=== PATIENT | male | born 1985 | race American Indian/Alaskan Native ===

== ENCOUNTER 2018-08-23 13:31 | Emergency (ER) | payer BC, OTHER ==
--- NOTE | 2018-08-23 15:10 | Emergency Department Report ---
Upper Extremity - HPI Chief Complaint: Shoulder Injury Stated Complaint: L SHOULDER PAIN Time Seen by Provider: 08/23/18 14:58 Upper Extremity: Left Shoulder Occurred When: >5 Days (2 months) Mechanism: Unsure Severity: moderate Symptoms: Yes Pain with Movement (mild), No Deformity, No Limited Range of Movement, No Numbness, No Weakness, No Swelling, No Bruising/Ecchymosis, No Laceration or Abrasion Other History: 33-year-old -Swiss male presents to the emergency room for a 2 month history of left shoulder pain after kickboxing. Patient reports he was lifting weights. Patient has not taken anything for pain. Patient does have a past medical history of PTSD and bipolar with depression. Patient repor ts that he is allergic to Zyprexa. Patient currently takes Depakote and Invega and BuSpar. Patient denies any hallucination or homicidal ideation. ED Review of Systems ROS: Stated complaint: L SHOULDER PAIN Other details as noted in HPI Comment: All other systems reviewed and negative ED Past Medical Hx - Past Medical History Previous Medical History?: Yes Hx Psychiatric Treatment: Yes (anxiety, bipolar disorder, PTSD) - Surgical History Past Surgical History?: No - Social History Smoking Status: Current Every Day Smoker Substance Use Type: Marijuana - Medications Home Medications: Home Medications Medication Instructions Recorded Confirmed Last Taken Type Diclofenac Dr [Marjan Sidhu] 75 mg PO Q12H #30 tablet 10/30/14 Unknown Rx Ibuprofen [Motrin 600 MG tab] 600 mg PO Q8H PRN #15 tablet 08/23/18 Unknown Rx Upper Extremity Exam - Exam General: Vital signs noted. No distress. Alert and acting appropriately. Head and Torso: No HEENT Abnormality, No Neck Tenderness, No Chest/Lungs Abnormality, No Abdominal Tenderness, No Back Tenderness Shoulder Exam: Yes Normal Range of Motion in Shoulder, No Shoulder Tenderness, No Clavicle Tenderness, No Shoulder Deformity, No AC Joint Tenderness Arm Exam: No Arm/Humerus Tenderness, No Arm Deformity Elbow: No Elbow Tenderness, No Normal Range of Motion in Elbow, No Elbow Deformity Forearm: No Forearm Tenderness, No Forearm Deformity, No Pain with Pronation, No Pain with Supination Wrist: Yes Normal ROM in Wrist, No Wrist Tenderness, No Wrist Deformity, No Snuffbox Tenderness, No Pain with Axial Thumb Compression Hand: Yes Normal ROM in Digit(s), No Hand Tenderness, No Hand Deformity, No Digit Tenderness, No Digit(s) Deformity, No Tendon Dysfunction CMS Exam: No Broken Skin, No Normal Distal Pulses, No Normal Capillary Refill, No Normal Distal Sensation ED Course Vital Signs 08/23/18 14:25 Temperature 98 F Pulse Rate 79 Respiratory 18 Rate Blood Pressure 137/78 [Right] O2 Sat by Pulse 99 Oximetry ED Medical Decision Making - Medical Decision Making 33-year-old male comes in with 2 month history of left shoulder pain [facility]. Patient be discharged home on ibuprofen 600 mg every 8 hours as needed and to be referred to Dr. Gamboa orthopedic provider. Critical care attestation.: If time is entered above; I have spent that time in minutes in the direct care of this critically ill patient, excluding procedure time. ED Disposition Clinical Impression: Left shoulder strain Qualifiers: Encounter type: initial encounter Qualified Code(s): S46.912A - Strain of unspecified muscle, fascia and tendon at shoulder and upper arm level, left arm, initial encounter Disposition: - TO HOME OR SELFCARE Is pt being admited?: No Does the pt Need Aspirin: No Condition: Stable Instructions: Rotator Cuff Injury (ED) Additional Instructions: Take pain medication as needed. Increase her water intake while taking pain medication. Take all chronic medications as prescribed by her mental health provider. Follow-up with an orthopedic provider if symptoms persist or gets worse. Prescriptions: Ibuprofen [Motrin 600 MG tab] 600 mg PO Q8H PRN #15 tablet PRN Reason: Pain Referrals: PAN GAMBOA MD [Staff Physician] - 3-5 Days
[2018-08-23] MEDS ORDERED: HALDOL IM ONE (16:51)
[2018-08-23] MEDS ORDERED: BENADRYL IM ONE ×2 (16:51→17:26)
[2018-08-23] MEDS ORDERED: ATIVAN IM STA (16:52)
--- NOTE | 2018-08-23 19:23 | Emergency Department Report ---
ED Psych HPI - General Chief Complaint: Shoulder Injury Stated Complaint: L SHOULDER PAIN Time Seen by Provider: 08/23/18 14:58 Source: patient Mode of arrival: Ambulatory - History of Present Illness Initial Comments: Patient is a 33-year-old male with past medical history of of psychotic disorder who presents with acute psychosis paranoia agitation and poor insight. Patient was transferred over here from [facility] and sent on a 1013. Patient states that today he has shoulder pain however. History is limited due to patient not wanting to cooperate with the history. - Related Data Previous Rx's Medication Instructions Recorded Last Taken Type Diclofenac Dr [Voltaren Dr] 75 mg PO Q12H #30 tablet 10/30/14 Unknown Rx Ibuprofen [Motrin 600 MG tab] 600 mg PO Q8H PRN #15 tablet 08/23/18 Unknown Rx Allergies Allergy/AdvReac Type Severity Reaction Status Date / Time No Known Allergies Allergy Verified 08/23/18 14:30 ED Review of Systems ROS: Stated complaint: L SHOULDER PAIN Other details as noted in HPI Comment: Unobtainable due to pts medical conditions (psych condition) ED Past Medical Hx - Past Medical History Previous Medical History?: Yes Hx Psychiatric Treatment: Yes (anxiety, bipolar disorder, PTSD) - Surgical History Past Surgical History?: No - Social History Smoking Status: Current Every Day Smoker Substance Use Type: Marijuana - Medications Home Medications: Home Medications Medication Instructions Recorded Confirmed Last Taken Type Diclofenac Dr [Voltaren Dr] 75 mg PO Q12H #30 tablet 10/30/14 Unknown Rx Ibuprofen [Motrin 600 MG tab] 600 mg PO Q8H PRN #15 tablet 08/23/18 Unknown Rx ED Physical Exam - General Limitations: No Limitations General appearance: alert, in no apparent distress - Head Head exam: Present: atraumatic, normocephalic - Eye Eye exam: Present: normal appearance - ENT ENT exam: Present: mucous membranes moist - Neck Neck exam: Present: normal inspection - Respiratory Respiratory exam: Present: normal lung sounds bilaterally. Absent: respiratory distress - Cardiovascular Cardiovascular Exam: Present: regular rate, normal rhythm. Absent: systolic murmur, diastolic murmur, rubs, gallop - GI/Abdominal GI/Abdominal exam: Present: soft, normal bowel sounds - Rectal Rectal exam: Present: deferred - Extremities Exam Extremities exam: Present: normal inspection - Back Exam Back exam: Present: normal inspection - Neurological Exam Neurological exam: Present: alert - Psychiatric Psychiatric exam: Present: other (psychotic agitated uncooperative and impulsive) - Skin Skin exam: Present: warm, dry, intact, normal color. Absent: rash ED Course Vital Signs 08/23/18 08/23/18 08/23/18 14:25 18:32 18:51 Temperature 98 F 98.2 F Pulse Rate 79 65 76 Respiratory 18 18 19 Rate Blood Pressure 137/78 132/56 132/56 [Right] O2 Sat by Pulse 99 100 97 Oximetry ED Medical Decision Making - Medical Decision Making Medical diagnosis: Acute psychosis Differential medical diagnosis: Substance induced mood disorder, psychotic disorder BLOOD work 1013 AND ALL HAVE PSYCH EVALUATE THE PATIENT. PATIENT IS CURRENTLY REFUSING BLOOD WORK HOWEVER ON EXAM AND PHYSICAL PATIENT HAS BEEN MEDICALLY CLEAR. WE'LL await TO DO THE BLOOD WORK. Critical care attestation.: If time is entered above; I have spent that time in minutes in the direct care of this critically ill patient, excluding procedure time. ED Disposition Clinical Impression: Psychosis Qualifiers: Psychosis type: unspecified psychosis type Qualified Code(s): F29 - Unspecified psychosis not due to a substance or known physiological condition Disposition: DC/TX-70 ANOTHER TYPE HLTHCARE Is pt being admited?: No Does the pt Need Aspirin: No Condition: Stable Instructions: Rotator Cuff Injury (ED) Additional Instructions: Take pain medication as needed. Increase her water intake while taking pain medication. Take all chronic medications as prescribed by her mental health provider. Follow-up with an orthopedic provider if symptoms persist or gets worse. Prescriptions: Ibuprofen [Motrin 600 MG tab] 600 mg PO Q8H PRN #15 tablet PRN Reason: Pain Referrals: PAN WATTS MD [Staff Physician] - 3-5 Days
[2018-08-23 21:09] LABS: Basophils % (Auto) 0.6 % (0.0-1.8); Eosinophils # (Auto) 0.1 K/mm3 (0.0-0.4); Eosinophils % (Auto) 1.5 % (0.0-4.3); Hematocrit 39.4 % (35.5-45.6); Hemoglobin 13.1 gm/dl (11.8-15.2); Lymphocytes # (Auto) 1.4 K/mm3 (1.2-5.4); Lymphocytes % (Auto) 24.2 % (13.4-35.0); Mean Corpuscular HGB Conc 33 % (32-34); Mean Corpuscular Volume 89 fl (84-94); Monocytes # (Auto) 0.4 K/mm3 (0.0-0.8); Monocytes % (Auto) 7.2 % (0.0-7.3); Platelet Count 168 K/mm3 (140-440); Red Blood Count 4.45 M/mm3 (3.65-5.03); Red Cell Distribution Width 14.4 % (13.2-15.2)
[2018-08-23 21:24] LABS: Alanine Aminotransferase 12 units/L (7-56); Albumin 3.7 g/dL (3.9-5); BUN/Creatinine Ratio 10; Blood Urea Nitrogen 9 mg/dL (9-20); Calcium 9.2 mg/dL (8.4-10.2); Hemolysis Index 13
[2018-08-24 02:11] LABS: Bilirubin,Urine NEG (Negative); Blood,Urine NEG (Negative); Color,Urine Yellow (Yellow); Protein,Urine <15 mg/dL mg/dL (Negative); Urobilinogen,Urine < 2.0 mg/dL (<2.0); WBC,Urine < 1.0 /HPF (0.0-6.0)
[2018-08-24 02:16] LABS: Amphetamine Screen,Urine PRESUMPTIVE NEGATIVE; Benzodiazepines Screen,Urine PRESUMPTIVE NEGATIVE; Cannabinoid Screen,Urine PRESUMPTIVE NEGATIVE; Cocaine Screen,Urine PRESUMPTIVE NEGATIVE; Methadone Screen,Urine PRESUMPTIVE NEGATIVE; Opiate Screen,Urine PRESUMPTIVE NEGATIVE
--- NOTE | 2018-08-24 12:18 | Consultation ---
History of Present Illness - Reason for Consult Consult date: 08/24/18 Reason for consult: Mental Health EValuation Requesting physician: ISAIAS EDGE - Chief Complaint Chief complaint: 'I didn't do anything" - History of Present Psychiatric Illness 33-year-old AA male who presented the ER for acute psychosis. Today the patient was calm and cooperative during the assessment. He stated that he isn't aware what happened yesterday. He stated that he came to the ER for shoulder pain. He cannot recall why he was placed on a 1013. He stated that he receive the monthly Invega injection. He stated that he was a patient at [facility] prior to coming to the ER. He denies SI/HI's and AVH's. Overall, the patient's recollection of events is limited. Medications and Allergies Allergies Allergy/AdvReac Type Severity Reaction Status Date / Time No Known Allergies Allergy Verified 08/23/18 14:30 Home Medications Medication Instructions Recorded Confirmed Last Taken Type Diclofenac Dr [Voltaren Dr] 75 mg PO Q12H #30 tablet 10/30/14 Unknown Rx Ibuprofen [Motrin 600 MG tab] 600 mg PO Q8H PRN #15 tablet 08/23/18 Unknown Rx Past psychiatric history - Past Medical History Past Medical History: No medical history Past Surgical History: No surgical history - past Psychiatric treatment and history psychiatric treatment history: Hx of mood do. Denies a fam psy hx. - Social History Social history: lives with family Mental Status Exam - Vital signs Last Vital Signs Temp 98.0 F 08/24/18 07:27 Pulse 65 08/24/18 07:27 Resp 18 08/24/18 07:27 BP 118/76 08/24/18 07:27 Pulse Ox 97 08/24/18 07:27 - Exam Narrative exam: MSE: Appearance: calm, cooperative Behavior: regular eye contact Speech: regular rate and tone Mood: "okay" Affect: congruent to mood Thought Process: somewhat circumstantial Thought Content: denies SI/HI's and AVH's Motor Activity: ambulatory Cognition: A/O x 3 Insight: variable to fair Judgment: variable to fair Results Result Diagrams: 08/23/18 20:48 08/23/18 20:48 Abnormal lab results 08/23/18 08/23/18 08/23/18 Range/Units 20:48 20:48 20:48 Total Protein 6.1 L (6.3-8.2) g/dL Albumin 3.7 L (3.9-5) g/dL Salicylates < 0.3 L (2.8-20.0) mg/dL Acetaminophen < 5.0 L (10.0-30.0) ug/mL All other labs normal. 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 . Recommendation/Plan: Continue 1013 and gather collateral information. The svetlana ent receive the monthly Invega injection. Dispo: Once collateral information is obtain, proper dipso will be determined. Will staff with Dr. Alexandro Banegas.
[2018-08-24] MEDS ORDERED: BUSPAR ONE (23:22)
[2018-08-25] MEDS ORDERED: BUSPAR PO SCH (08:00)
[2018-08-25] MEDS: BUSPAR PO SCH ×3 (09:00→14:26)
[2018-08-25 09:31] VITALS: BP 111/87
--- NOTE | 2018-08-25 10:56 | Progress Note ---
Subjective - Reason for Consult Consult date: 08/25/18 Reason for consult: Psychiatry Follow-up - Chief Complaint Chief complaint: 'I am okay" 33-year-old AA male who presented the ER for acute psychosis. Today the patient was calm and cooperative during the assessment. Per collateral information from the patient's cousin, Sisi at [phone], she stated that the patient is on "garcia" and is court ordered to be in a rehab center. She stated that the patient was sent to a rehab treatment where there wasn't a good fit. That treatment facility transferred him to [facility]. [facility] brought the patient to [facility] for "clearance" I was told. Throughout this process, the patient wasn't informed on what was going on so he became agitated in ER and a 1013 was initiated. The past 2 days the patient has been pleasant without any disturbances. He denies SI/HI's and AVH's. He stated that he will follow up with Dr Garcia when discharge. 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 . Recommendation/Plan: Rescind 1013. The patient receive the monthly Invega injection per Dr Garcia in [place], [place]. Dispo: The patient can follow up with Dr Garcia for outpatient psy services. Will staff with Dr. Alexandro Banegas.
== END 2018-08-25 15:22 | disposition home or self-care (01) ==
LOC: EEVIPCON 13:31 → ED 13:31
DX: F39 Unspecified mood [affective] disorder (principal); F23 Brief psychotic disorder
CPT/HCPCS: 36415; 80053; 85025; 96372; 99285; G0480; J1200; J1630; J2060; 80164; 80307; 80320; 81001